=== PATIENT | female | born 1975 | race Caucasian/White ===

== ENCOUNTER → 2017-05-14 | Outpatient (CLI) | payer BC ==
[~2017-05-14] MED LIST: CIPROFLOXACIN500 M1 PO; OXYCODONE HCL5 M1 PO; VALTREX 500 MG500 MG PO; ZOFRAN4 MG PO; ZOLOFT 50 MG TA50 M1 PO
== END ==
LOC: RAD 04:11
DX: Z12.31 Encounter for screening mammogram for malignant neoplasm of breast (principal)